=== PATIENT | female | born 1975 | race Caucasian/White ===

== ENCOUNTER 2017-02-12 08:49 | Day surgery (SDC) | payer OTHER ==
[2017-02-11 13:54] LABS: HEMATOCRIT 41.7 % (36.0-48.0)
[2017-02-11 14:09] LABS: A/G RATIO 0.8 (0.7-1.9); ALBUMIN 3.1 G/DL (3.5-5.0); ALKALINE PHOSPHATASE 199 U/L (45-117); BUN (BLOOD UREA NITROGEN) 11 MG/DL (6-23); CALCIUM, SERUM 8.8 MG/DL (8.5-10.4); CHLORIDE, SERUM 99 MMOL/L (96-112); CO2 (CARBON DIOXIDE) 27 MMOL/L (24-34); CREATININE 0.73 MG/DL (0.55-1.02); GFR AFRICAN AMERICAN 117 ML/MIN (>=60); GFR NON AFRICAN AMERICAN 101 ML/MIN (>=60); GLOBULIN 3.9 G/DL (2.5-4.1); POTASSIUM, SERUM 4.3 MMOL/L (3.5-5.3); SGOT(AST) 183 U/L (5-40); SGPT(ALT) 125 U/L (5-65); SODIUM, SERUM 137 MMOL/L (135-148); TOTAL BILIRUBIN 0.9 MG/DL (0-1.2)
[2017-02-11 14:10] LABS: GLUCOSE, SERUM 355 MG/DL (60-99)
--- NOTE | ~2017-02-12 | OP ---
Record Of Operation [facility] [address] [place]. [address] NAME: JENN RAMIREZ : 71 STATUS : REG [facility] PAT#: [id number] AGE: 41 ADM/REG DATE : 02/12/17 MR#: [id number] REPORT SERV DATE: 02/12/17 DICTATED BY: GIOVANNI SPEAR DATE: 02/12/17 REPORT STATUS : Draft TRANSCRIBED BY: MODL DATE: 02/12/17 DATE OF PROCEDURE: 02/12/2017 PREOPERATIVE DIAGNOSIS: Chronic cholecystitis. POSTOPERATIVE DIAGNOSIS: Chronic cholecystitis with suspected steatohepatitis. PROCEDURES: 1. Laparoscopic cholecystectomy (2 site). 2. Core biopsy left lobe of the liver x2. SURGEON: Giovanni Spear M.D. DESCRIPTION OF OPERATIVE PROCEDURE: The patient was brought to the operating suite, placed in the supine position, underwent satisfactory general endotracheal anesthesia. The skin of the abdomen was scrubbed, prepped, and draped in the usual sterile fashion. Marcaine 0.5% with epinephrine utilized as supplemental local anesthesia at all intended trocar sites. Initially, an infraumbilical incision was performed dissecting through the skin and subcutaneous tissue to the umbilical fascia. This was grasped with Jennifer clamp and elevated and a disposable Veress insufflation needle was inserted through the umbilical fascia into the peritoneal cavity with the intraperitoneal tip location ascertained using the saline hanging drop method. CO2 was then insufflated for pressures of 15 mmHg throughout the case. After adequate insufflation pressure achieved, the Veress needle was removed, disposable bladed shielded 11 mm trocar inserted through the umbilical fascia following which a rigid forward-viewing 10 mm laparoscope was inserted. Visualization of the intraabdominal parieties revealed no evidence of injury from initial insufflation or puncture. Cursory examination of the pelvis was normal. Attention was then turned to the upper abdomen where an additional 5 mm placed to the right of falciform ligament. An additional 5 mm grasping instrument inserted next to the umbilical trocar. The liver appeared quite pale and yellowish and heavy as if there was steatosis or steatohepatitis or fatty liver. Fundus and body of the gallbladder grasped with significant amount of difficulty. The dissection in the triangle of Calot was performed. The cystic duct/common duct junction was visualized and as well as the cystic artery. Both of these structures were controlled with multiple applications of the Weck 5 mm polymer clip system and divided. Then using spatula cautery dissection, the peritoneal attachments to the gallbladder and liver were divided and the gallbladder was removed from the subhepatic space. Hemostasis was assured. Then 2 separate Moses-Cut core biopsies were taken of the left lobe of the liver and submitted in formalin. Hemostasis was with direct pressure from the gallbladder. Next, the camera was switched to the 5 mm epigastric port. The gallbladder was placed Record Of [address] [address] NAME: JENN RAMIREZ : 71 STATUS : REG [facility] PAT#: [id number] AGE: 41 ADM/REG DATE : 02/12/17 MR#: [id number] REPORT SERV DATE: 02/12/17 DICTATED BY: GIOVANNI SPEAR DATE: 02/12/17 REPORT STATUS : Draft TRANSCRIBED BY: MERT DATE: 02/12/17 inside an Endo retrieval pouch passed through the umbilical port. All trocars removed. The gallbladder was also removed and contained no stones. CO2 was allowed to egress from the peritoneal cavity. The umbilicus was closed with figure- of-eight suture of 0 Vicryl, subcutaneous tissue closed with interrupted 4-0 Vicryl, running subcuticular stitch with 4-0 Vicryl for the skin. Dermabond skin adhesive placed. The patient tolerated the procedure well and was returned to PACU in stable condition. At the termination of the procedure, sponge, needle, lap, and instrument counts were correct x3. ESTIMATED BLOOD LOSS: Less than 10 mL. KODY/RANL Giovanni Spear M.D. / [id number] CC: Samuel Hercules
[~2017-02-12 08:49] MED LIST: AMB5 PO; ASAB PO; COZAAR100 MG PO; EFFEXOR XR150 MG PO; FLEX PO; LANTUS SC; LYRICA150 MG PO; MEVACOR PO; NOVOLOG SC; PR25 PO; PRILOSEC OTC20 MG PO; TOPXL50 PO
== END 2017-02-12 19:09 | disposition home or self-care (01) ==
LOC: SDC 08:49
PROVIDERS: Specialist
PROC: 0FT44ZZ Resection of Gallbladder, Percutaneous Endoscopic Approach (ICD-10-PCS; principal; 2017-02-12 10:15)
PROC: 0FB04ZX Excision of Liver, Percutaneous Endoscopic Approach, Diagnostic (ICD-10-PCS; 2017-02-12 10:15)
DX: K81.1 Chronic cholecystitis (principal); K75.81 Nonalcoholic steatohepatitis (NASH); F41.9 Anxiety disorder, unspecified; M19.90 Unspecified osteoarthritis, unspecified site; K21.9 Gastro-esophageal reflux disease without esophagitis; E78.5 Hyperlipidemia, unspecified; N39.0 Urinary tract infection, site not specified; J18.9 Pneumonia, unspecified organism; E11.65 Type 2 diabetes mellitus with hyperglycemia; J40 Bronchitis, not specified as acute or chronic; E78.00 Pure hypercholesterolemia, unspecified; Z88.1 Allergy status to other antibiotic agents; Z98.890 Other specified postprocedural states; Z90.710 Acquired absence of both cervix and uterus; Z79.899 Other long term (current) drug therapy; Z79.82 Long term (current) use of aspirin; Z79.4 Long term (current) use of insulin; Z98.41 Cataract extraction status, right eye; Z98.42 Cataract extraction status, left eye; Z98.51 Tubal ligation status
CPT/HCPCS: 80053; 82962; 85014; 85018; 88304; 88307; 88313; 93005; A9270-GY; J0690; J1170; J2250; J2405; J2710; J3010